=== PATIENT | female | born 1995 | race Caucasian/White ===

== ENCOUNTER → 2020-01-14 16:21 | Outpatient (BNVA) | payer SELFPAY | PROVIDERS: Visit Provider Nurse Practitioner | DX: R35.0 Frequency of micturition (principal) | CPT/HCPCS: 81000 ==

== ENCOUNTER 2021-03-03 05:20 | Day surgery (SDC) | payer MEDICAID, SELFPAY ==
[2021-03-03] VITALS (8 sets, daily range): BP systolic 113–135; BP diastolic 71–101; PULSE 54–88; RESP 16–20; TEMP 36.2–36.7; O2SAT 96–99; BMI 37.9
--- NOTE | 2021-03-03 05:49 | ED_ITS ---
Documented by User: Farooq Denney DO 03/03/21 06:17 HPI - Abdominal Pain General: Chief Complaint: Abdominal Pain Stated Complaint: ABD Pain Time Seen by Provider: 03/03/21 05:43 History of Present Illness: HPI narrative: 25-year-old female, healthy, with epigastric pain on and off for a month. She says it is worse after meals. She has vomited once this morning due to the pain. She has had multiple episodes. She says it seems to be getting worse. She denies fever. No history of belly surgery. No diarrhea. Localizes pain to the epigastrium. MD elicited complaint: abdominal pain Onset (ago): day(s) (30) Pain Consistency: intermittent Location: Epigastric Severity: moderate Quality: cramping and stabbing Radiation: none Migration to: no migration Exacerbating factors: eating Relieving factors: other (Smoking marijuana) Associated Symptoms: Reports vomiting; Denies change in bowel habits, change in stool character, chills, constipation, diarrhea, dysuria, fever(s), hematemesis and melena Review of Systems Const: Denies: fever(s) or chills Card: Denies: chest pain Resp: Denies: dyspnea, productive cough or non-productive cough GI: Reports: vomiting; Denies: hematemesis, diarrhea, constipation, change in bowel habits, change in stool character or melena : Denies: dysuria Neuro: Denies: headache(s) [facility] ED PFSH: Social History Smoking and tobacco status: never smoked Physical Exam Const: COMMON NORMALS: patient oriented x3 GENERAL APPEARANCE: cooperative and ill appearing (in pain) NUTRITIONAL APPEARANCE: overweight HENMT: COMMON NORMALS: normocephalic HEAD & SCALP: normocephalic Chest: COMMONS NORMALS: normal inspection of the chest CHEST: No tenderness Resp: COMMON NORMALS: normal respiratory effort, No use of accessory muscles and clear to auscultation bilaterally AUSCULTATION: clear to auscultation bilaterally Cardio: COMMON NORMALS: regular rate and regular rhythm RATE: regular rate RHYTHM: regular rhythm GI: COMMON NORMALS: Normal to inspection, nondistended, normoactive bowel sounds present PALPATION: Yes Tenderness to palpation present (GI) (epigastric ) Extremity: COMMON NORMALS: capillary refill normal Neuro: COMMON NORMALS: patient oriented x3 Course Vital Signs: Vital signs: Vital Signs Temperature 98.0 F 03/03/21 06:29 Pulse Rate 54 L 03/03/21 17:38 Respiratory Rate 18 03/03/21 06:29 Blood Pressure 113/71 03/03/21 09:30 Pulse Oximetry 98 03/03/21 17:38 MDM - Abdominal Pain MDM Narrative: Medical decision making narrative: 25-year-old female with epigastric pain. White blood cell count is 13.1. Other laboratory is pending. She will be checked out to Dr. Aleman at shift change. Lab Data: Labs: Lab Results 03/03/21 03/03/21 03/03/21 Range/Units 05:44 05:44 05:44 WBC 13.1 H (4.0-10.0) 10^3/ uL RBC 5.46 H (4.1-5.3) 10^6/u L Hgb 15.0 (11.5-15.3) g/dL Hct 46.5 (37.0-47.0) % MCV 85.2 (81-99) fl MCH 27.5 L (28.0-34.0) pg MCHC 32.3 (30.0-36.0) g/dL RDW 13.3 (12.1-15.1) % Plt Count 309 (130-400) 10^3/c mm MPV 11.8 H (7.4-10.4) fL Neut % (Auto) 73.4 % Lymph % (Auto) 19.7 % [place] % (Auto) 5.2 % Eos % (Auto) 1.0 % Baso % (Auto) 0.3 % Neut # (Auto) 9.60 H (1.8-7.7) 10^3/u L Lymph # (Auto) 2.6 (0.8-4.8) 10^3/u L [place] # (Auto) 0.7 (0.2-0.9) 10^3/u L Eos # (Auto) 0.1 (0.0-0.8) 10^3/u L Baso # (Auto) 0.0 (0.0-0.1) 10^3/u L Nucleated RBC % (a uto) 0 % Nucleated RBCs # 0.0 /100WBC Sodium 136 (136-145) mmol/L Potassium 3.9 (3.5-5.1) mmol/L Chloride 102 (98-107) mmol/L Carbon Dioxide 24 (22-29) mmol/L Anion Gap 13.9 (5-19) BUN 11 (6-20) mg/dL Creatinine 0.7 (0.5-0.9) mg/dL GFR Calculation 102.8 (90-130) mL/min Glucose 96 (65-115) mg/dL Calculated Osmolal ity 281 L (285-295) mOsm/k g Lactate 1.0 (0.5-2.2) mmol/L Calcium 9.2 (8.5-10.5) mg/dL Total Bilirubin 0.6 (0.15-1.2) mg/dL AST 62 H (0-32) U/L ALT 61 H (0-33) U/L Alkaline Phosphata se 135 H (35-105) IU/L C-Reactive Protein 6.2 H (0.0-4.9) mg/L Total Protein 7.5 (6.6-8.7) g/dL Albumin 4.5 (3.5-5.2) g/dL Globulin 3.0 (1.3-4.6) g/dL Lipase 34 (13-60) U/L HCG, Qual (Negative) Urine Color (Yellow) Urine Appearance (CLEAR) Urine pH (5-7) Ur Specific Gravit y (1.005-1.030) Urine Protein (Negative) Urine Glucose (UA) (Normal) Urine Ketones (Negative) Urine Blood (Negative) Urine Nitrate (Negative) Urine Bilirubin (Negative) Urine Urobilinogen (Negative) mg/dL Ur Leukocyte Mila ase (Negative) Urine RBC (0-2) /hpf Urine WBC (0-5) /hpf Ur Squamous Epith Cells (0-5) /hpf Amorphous Sediment Urine Bacteria (NONE) /hpf SARS-CoV-2 Ag (Rap id) (Negative) 03/03/21 03/03/21 03/03/21 Range/Units 05:44 05:44 10:23 WBC (4.0-10.0) 10^3/ uL RBC (4.1-5.3) 10^6/u L Hgb (11.5-15.3) g/dL Hct (37.0-47.0) % MCV (81-99) fl MCH (28.0-34.0) pg MCHC (30.0-36.0) g/dL RDW (12.1-15.1) % Plt Count (130-400) 10^3/c mm MPV (7.4-10.4) fL Neut % (Auto) % Lymph % (Auto) % [place] % (Auto) % Eos % (Auto) % Baso % (Auto) % Neut # (Auto) (1.8-7.7) 10^3/u L Lymph # (Auto) (0.8-4.8) 10^3/u L [place] # (Auto) (0.2-0.9) 10^3/u L Eos # (Auto) (0.0-0.8) 10^3/u L Baso # (Auto) (0.0-0.1) 10^3/u L Nucleated RBC % (a uto) % Nucleated RBCs # /100WBC Sodium (136-145) mmol/L Potassium (3.5-5.1) mmol/L Chloride (98-107) mmol/L Carbon Dioxide (22-29) mmol/L Anion Gap (5-19) BUN (6-20) mg/dL Creatinine (0.5-0.9) mg/dL GFR Calculation (90-130) mL/min Glucose (65-115) mg/dL Calculated Osmolal ity (285-295) mOsm/k g Lactate (0.5-2.2) mmol/L Calcium (8.5-10.5) mg/dL Total Bilirubin (0.15-1.2) mg/dL AST (0-32) U/L ALT (0-33) U/L Alkaline Phosphata se (35-105) IU/L C-Reactive Protein (0.0-4.9) mg/L Total Protein (6.6-8.7) g/dL Albumin (3.5-5.2) g/dL Globulin (1.3-4.6) g/dL Lipase (13-60) U/L HCG, Qual Negative (Negative) Urine Color Dark yellow (Yellow) Urine Appearance Hazy A (CLEAR) Urine pH 5 (5-7) Ur Specific Gravit y 1.025 (1.005-1.030) Urine Protein Neg (Negative) Urine Glucose (UA) Norm (Normal) Urine Ketones Negative (Negative) Urine Blood 2+ H (Negative) Urine Nitrate Negative (Negative) Urine Bilirubin 1+ H (Negative) Urine Urobilinogen 1 H (Negative) mg/dL Ur Leukocyte Mila ase 1+ H (Negative) Urine RBC 5-10 H (0-2) /hpf Urine WBC 10-15 H (0-5) /hpf Ur Squamous Epith Cells 15-25 H (0-5) /hpf Amorphous Sediment Not Reportable Urine Bacteria 1+ H (NONE) /hpf SARS-CoV-2 Ag (Rap id) Negative (Negative) Discharge Plan Discharge Patient Disposition: Transfer to ED Clinical Impression: Choledocholithiasis, Leukocytosis Condition: Stable Prescriptions: No Action No Known Home Medications RF: 0 Coding Level of Care Code ED Cytogenetics Laboratory Manager for Chg Fwd Exam Detailed Documented by User: Lydia Aleman MD 03/03/21 18:38 HPI - Abdominal Pain General: Chief Complaint: Abdominal Pain Stated Complaint: ABD Pain Time Seen by Provider: 03/03/21 05:43 [facility] ED PFSH: Social History Smoking and tobacco status: never smoked Course Vital Signs: Vital signs: Vital Signs Temperature 98.0 F 03/03/21 06:29 Pulse Rate 54 L 03/03/21 17:38 Respiratory Rate 18 03/03/21 06:29 Blood Pressure 113/71 03/03/21 09:30 Pulse Oximetry 98 03/03/21 17:38 MDM - Abdominal Pain MDM Narrative: Medical decision making narrative: Patient is noted to have white count of 13.1, similar to prior presentation on 02/23. On exam, patient has mild tenderness to palpation the midepigastric area. CT abdomen pelvis showed dilated CBD at 0.9 cm. Given findings of cholelithiasis this is suggestive of choledocholithiasis. Patient is afebrile today. However, given leukocytosis, finding of choledocholithiasis, although no suspicion for ascending cholangitis currently, patient would be better served being at a facility where ERCP is readily available. Currently waiting to hear back from available hospitals with med/surg beds and ERCP capabilities. Lab Data: Labs: Lab Results 03/03/21 03/03/21 03/03/21 Range/Units 05:44 05:44 05:44 WBC 13.1 H (4.0-10.0) 10^3/ uL RBC 5.46 H (4.1-5.3) 10^6/u L Hgb 15.0 (11.5-15.3) g/dL Hct 46.5 (37.0-47.0) % MCV 85.2 (81-99) fl MCH 27.5 L (28.0-34.0) pg MCHC 32.3 (30.0-36.0) g/dL RDW 13.3 (12.1-15.1) % Plt Count 309 (130-400) 10^3/c mm MPV 11.8 H (7.4-10.4) fL Neut % (Auto) 73.4 % Lymph % (Auto) 19.7 % [place] % (Auto) 5.2 % Eos % (Auto) 1.0 % Baso % (Auto) 0.3 % Neut # (Auto) 9.60 H (1.8-7.7) 10^3/u L Lymph # (Auto) 2.6 (0.8-4.8) 10^3/u L [place] # (Auto) 0.7 (0.2-0.9) 10^3/u L Eos # (Auto) 0.1 (0.0-0.8) 10^3/u L Baso # (Auto) 0.0 (0.0-0.1) 10^3/u L Nucleated RBC % (a uto) 0 % Nucleated RBCs # 0.0 /100WBC Sodium 136 (136-145) mmol/L Potassium 3.9 (3.5-5.1) mmol/L Chloride 102 (98-107) mmol/L Carbon Dioxide 24 (22-29) mmol/L Anion Gap 13.9 (5-19) BUN 11 (6-20) mg/dL Creatinine 0.7 (0.5-0.9) mg/dL GFR Calculation 102.8 (90-130) mL/min Glucose 96 (65-115) mg/dL Calculated Osmolal ity 281 L (285-295) mOsm/k g Lactate 1.0 (0.5-2.2) mmol/L Calcium 9.2 (8.5-10.5) mg/dL Total Bilirubin 0.6 (0.15-1.2) mg/dL AST 62 H (0-32) U/L ALT 61 H (0-33) U/L Alkaline Phosphata se 135 H (35-105) IU/L C-Reactive Protein 6.2 H (0.0-4.9) mg/L Total Protein 7.5 (6.6-8.7) g/dL Albumin 4.5 (3.5-5.2) g/dL Globulin 3.0 (1.3-4.6) g/dL Lipase 34 (13-60) U/L HCG, Qual (Negative) Urine Color (Yellow) Urine Appearance (CLEAR) Urine pH (5-7) Ur Specific Gravit y (1.005-1.030) Urine Protein (Negative) Urine Glucose (UA) (Normal) Urine Ketones (Negative) Urine Blood (Negative) Urine Nitrate (Negative) Urine Bilirubin (Negative) Urine Urobilinogen (Negative) mg/dL Ur Leukocyte Mila ase (Negative) Urine RBC (0-2) /hpf Urine WBC (0-5) /hpf Ur Squamous Epith Cells (0-5) /hpf Amorphous Sediment Urine Bacteria (NONE) /hpf SARS-CoV-2 Ag (Rap id) (Negative) 03/03/21 03/03/21 03/03/21 Range/Units 05:44 05:44 10:23 WBC (4.0-10.0) 10^3/ uL RBC (4.1-5.3) 10^6/u L Hgb (11.5-15.3) g/dL Hct (37.0-47.0) % MCV (81-99) fl MCH (28.0-34.0) pg MCHC (30.0-36.0) g/dL RDW (12.1-15.1) % Plt Count (130-400) 10^3/c mm MPV (7.4-10.4) fL Neut % (Auto) % Lymph % (Auto) % [place] % (Auto) % Eos % (Auto) % Baso % (Auto) % Neut # (Auto) (1.8-7.7) 10^3/u L Lymph # (Auto) (0.8-4.8) 10^3/u L [place] # (Auto) (0.2-0.9) 10^3/u L Eos # (Auto) (0.0-0.8) 10^3/u L Baso # (Auto) (0.0-0.1) 10^3/u L Nucleated RBC % (a uto) % Nucleated RBCs # /100WBC Sodium (136-145) mmol/L Potassium (3.5-5.1) mmol/L Chloride (98-107) mmol/L Carbon Dioxide (22-29) mmol/L Anion Gap (5-19) BUN (6-20) mg/dL Creatinine (0.5-0.9) mg/dL GFR Calculation (90-130) mL/min Glucose (65-115) mg/dL Calculated Osmolal ity (285-295) mOsm/k g Lactate (0.5-2.2) mmol/L Calcium (8.5-10.5) mg/dL Total Bilirubin (0.15-1.2) mg/dL AST (0-32) U/L ALT (0-33) U/L Alkaline Phosphata se (35-105) IU/L C-Reactive Protein (0.0-4.9) mg/L Total Protein (6.6-8.7) g/dL Albumin (3.5-5.2) g/dL Globulin (1.3-4.6) g/dL Lipase (13-60) U/L HCG, Qual Negative (Negative) Urine Color Dark yellow (Yellow) Urine Appearance Hazy A (CLEAR) Urine pH 5 (5-7) Ur Specific Gravit y 1.025 (1.005-1.030) Urine Protein Neg (Negative) Urine Glucose (UA) Norm (Normal) Urine Ketones Negative (Negative) Urine Blood 2+ H (Negative) Urine Nitrate Negative (Negative) Urine Bilirubin 1+ H (Negative) Urine Urobilinogen 1 H (Negative) mg/dL Ur Leukocyte Mila ase 1+ H (Negative) Urine RBC 5-10 H (0-2) /hpf Urine WBC 10-15 H (0-5) /hpf Ur Squamous Epith Cells 15-25 H (0-5) /hpf Amorphous Sediment Not Reportable Urine Bacteria 1+ H (NONE) /hpf SARS-CoV-2 Ag (Rap id) Negative (Negative) Imaging Data ^: Other Imaging: Radiologist's impression: [employer] [id number] Scan ReportSigned Patient: Elisabet Lozano #: [id number]: 1995Acct#:[id number]/Sex: 25 / FADM Date: 03/03/21Loc: ERRoom/Bed:Attending Dr: Ordering Provider/Ordering MD: Farooq Denney DO Date of Service: 03/03/21 Procedure(s): CT abdomen pelvis w con* [id number] Accession Number(s): [id number] Report Number: [id number] PROCEDURE INFORMATION: Exam: CT Abdomen And Pelvis With Contrast Exam date and time: 03/03/2021 6:04 AM Age: 25 years old Clinical indication: Abdominal pain; Epigastric; Additional info: Epigastric pain TECHNIQUE: Imaging protocol: Computed tomography of the abdomen and pelvis with contrast. Radiation optimization: All CT scans at this facility use at least one of these dose optimization techniques: automated exposure control; mA and/or kV adjustment per patient size (includes targeted exams where dose is matched to clinical indication); or iterative reconstruction. Contrast material: OMNI 300; Contrast volume: 95 ml; Contrast route: INTRAVENOUS (IV); COMPARISON: [place] [facility] [place] > 14 weeks 10/19/2018 1:45 PM RADIATION DOSE METRICS: Total DLP (mGy-cm): 1822.12 FINDINGS: Liver: Normal. No mass. Gallbladder and bile ducts: There is dilatation of the CBD measuring up to 0.9 cm in diameter, dilatation of the common hepatic duct measuring up to 1.5 cm in diameter, and mild intrahepatic biliary ductal dilatation, suggestive of choledocholithiasis. Mildly distended gallbladder with a single stone measuring 0.5 cm. Pancreas: Normal. No ductal dilation. Spleen: Normal. No splenomegaly. Adrenal glands: Normal. No mass. Kidneys and ureters: There is bilateral nonobstructive kidney stones, measuring between 0.2 cm and 0.3 cm. No hydronephrosis. Symmetric enhancement of the kidneys without evidence of mass lesion. Stomach and bowel: Unremarkable. No obstruction. No mucosal thickening. Appendix: No evidence of appendicitis. Intraperitoneal space: Unremarkable. No free air. No significant fluid collection. Vasculature: Unremarkable. No abdominal aortic aneurysm. Lymph nodes: Unremarkable. No enlarged lymph nodes. Urinary bladder: Unremarkable as visualized. Reproductive: Unremarkable as visualized. Bones/joints: Unremarkable. No acute fracture. Soft tissues: A small fat containing umbilical hernia is present. CT/CT abdomen pelvis w con* [id number] IMPRESSION: Imaging findings concerning for choledocholithiasis. Further evaluation with abdomen ultrasound and/or abdomen MRI/MRCP is recommended. Radiation Dose CTDIVOL = (mGy): DLP = 1822.12 (mGy-cm) Dictated By:Latasha Sherwood By:Latasha Sherwood Date/Time:03/03/21 0703DD/ [address] [address]Shxauqciva ReportSigned Patient: Elisabet Lozano #: [id number]: 1995Acct#:[id number]/Sex: 25 / FADM Date: 03/03/21[facility]Attending Dr: Ordering Provider/Ordering MD: Lydia Aleman MD Date of Service: 03/03/21 Procedure(s): US gall bladder [id number] Accession Number(s): [id number] Report Number: [id number] PROCEDURE INFORMATION: Exam: US Abdomen, Limited; Right Upper Quadrant Exam date and time: 03/03/2021 9:29 AM Age: 25 years old Clinical indication: Abdominal pain; Additional info: Evaluate for pathologies TECHNIQUE: Imaging protocol: US abdomen. Real time ultrasound with image documentation. Limited exam focused on the right upper quadrant. COMPARISON: CT abdomen pelvis w con* [id number] 03/03/2021 6:34 AM FINDINGS: Liver: Liver is diffusely increased in echogenicity, most commonly seen in hepatic steatosis, though other forms of parenchymal liver disease could have a similar appearance. This limits evaluation for subtle isoechoic masses but no masses are seen. Patent main portal vein with normal direction of flow. Gallbladder: Multiple gallstones noted. There is no gallbladder wall thickening. Common bile duct: No stones. Mildly dilated CBD measuring between 0.7 cm and 1.0 cm. Pancreas: Visualized pancreas is unremarkable. Right kidney: Pinning of the right renal cortex noted. No mass. No hydronephrosis. US/US gall bladder [id number] IMPRESSION: 1. Mildly dilated CBD. No stone identified. Further evaluation with abdomen MRI/MRCP should be considered in the adequate clinical setting. 2. Cholelithiasis without evidence of cholecystitis. 3. Hyperechoic liver, which can be seen with fatty infiltration or hepatocellular disease. No discrete mass lesion identified. 4. Thinning of the right renal cortex. Dictated By:Latasha Sherwood By:Latasha Sherwood Date/Time:03/03/21 1118DD/ 1117 Discharge Plan Discharge Patient Disposition: Transfer to ED Clinical Impression: Choledocholithiasis, Leukocytosis Condition: Stable Prescriptions: No Action No Known Home Medications RF: 0 Coding Level of Care Code ED Cytogenetics Laboratory Manager for Chg Fwd Exam Detailed
[2021-03-03 05:57] LABS: Basophils % 0.3 %; Eosinophils # 0.1 10^3/uL (0.0-0.8); Hematocrit 46.5 % (37.0-47.0); Lymphocytes # 2.6 10^3/uL (0.8-4.8); Lymphocytes % 19.7 %; Mean Corpuscular HGB Conc 32.3 g/dL (30.0-36.0); Mean Corpuscular Hemoglobin 27.5 pg (28.0-34.0); Mean Corpuscular Volume 85.2 fl (81-99); Mean Platelet Volume 11.8 fL (7.4-10.4); Monocytes # 0.7 10^3/uL (0.2-0.9); Monocytes % 5.2 %; Neutrophils % 73.4 %; Nucleated Red Blood Cells % 0 %; Platelet Count 309 10^3/cmm (130-400); Red Blood Count 5.46 10^6/uL (4.1-5.3); Red Cell Distribution Width 13.3 % (12.1-15.1); White Blood Count 13.1 10^3/uL (4.0-10.0)
--- NOTE | 2021-03-03 06:04 | CTR_ITS ---
PROCEDURE INFORMATION: Exam: CT Abdomen And Pelvis With Contrast Exam date and time: 03/03/2021 6:04 AM Age: 25 years old Clinical indication: Abdominal pain; Epigastric; Additional info: Epigastric pain TECHNIQUE: Imaging protocol: Computed tomography of the abdomen and pelvis with contrast. Radiation optimization: All CT scans at this facility use at least one of these dose optimization techniques: automated exposure control; mA and/or kV adjustment per patient size (includes targeted exams where dose is matched to clinical indication); or iterative reconstruction. Contrast material: OMNI 300; Contrast volume: 95 ml; Contrast route: INTRAVENOUS (IV); COMPARISON: [place] [facility] [place] > 14 weeks 10/19/2018 1:45 PM RADIATION DOSE METRICS: Total DLP (mGy-cm): 1822.12 FINDINGS: Liver: Normal. No mass. Gallbladder and bile ducts: There is dilatation of the CBD measuring up to 0.9 cm in diameter, dilatation of the common hepatic duct measuring up to 1.5 cm in diameter, and mild intrahepatic biliary ductal dilatation, suggestive of choledocholithiasis. Mildly distended gallbladder with a single stone measuring 0.5 cm. Pancreas: Normal. No ductal dilation. Spleen: Normal. No splenomegaly. Adrenal glands: Normal. No mass. Kidneys and ureters: There is bilateral nonobstructive kidney stones, measuring between 0.2 cm and 0.3 cm. No hydronephrosis. Symmetric enhancement of the kidneys without evidence of mass lesion. Stomach and bowel: Unremarkable. No obstruction. No mucosal thickening. Appendix: No evidence of appendicitis. Intraperitoneal space: Unremarkable. No free air. No significant fluid collection. Vasculature: Unremarkable. No abdominal aortic aneurysm. Lymph nodes: Unremarkable. No enlarged lymph nodes. Urinary bladder: Unremarkable as visualized. Reproductive: Unremarkable as visualized. Bones/joints: Unremarkable. No acute fracture. Soft tissues: A small fat containing umbilical hernia is present. CT/CT abdomen pelvis w con* [id number] IMPRESSION: Imaging findings concerning for choledocholithiasis. Further evaluation with abdomen ultrasound and/or abdomen MRI/MRCP is recommended. Radiation Dose CTDIVOL = (mGy): DLP = 1822.12 (mGy-cm)
[2021-03-03 06:13] LABS: HCG, Serum Qual Negative (Negative)
[2021-03-03 06:18] LABS: Alanine Aminotransferase 61 U/L (0-33); Albumin Level 4.5 g/dL (3.5-5.2); Alkaline Phosphatase 135 IU/L (35-105); Anion Gap 13.9 (5-19); Aspartate Amino Transferase 62 U/L (0-32); Blood Urea Nitrogen 11 mg/dL (6-20); C Reactive Protein 6.2 mg/L (0.0-4.9); Calcium 9.2 mg/dL (8.5-10.5); Carbon Dioxide 24 mmol/L (22-29); Chloride 102 mmol/L (98-107); Glomerular Filtration Rate 102.8 mL/min (90-130); Glucose 96 mg/dL (65-115); Lipase 34 U/L (13-60); Osmolality Calculated 281 mOsm/kg (285-295); Potassium 3.9 mmol/L (3.5-5.1); Sodium 136 mmol/L (136-145); Total Bilirubin 0.6 mg/dL (0.15-1.2); Total Protein 7.5 g/dL (6.6-8.7)
[2021-03-03] MEDS: ondansetron 2 mg/ML SDV 2 mL 4 MG IVP ×2 (06:24→20:18)
[2021-03-03] MEDS: morphine 4 mg/mL SDV 1 mL IVP ×2 (06:25→20:18)
[2021-03-03] MEDS: sodium chloride 0.9% 1,000 ML 999 ML IV (06:26)
[2021-03-03] MEDS: lidocaine 2% viscous 15 ML, aluminum-mag hydrox-simethicon 30 ML, sucralfate oral liq 1 GM PO (06:26)
[2021-03-03 06:36] LABS: Bilirubin Urine 1+ (Negative); Blood Urine 2+ (Negative); Glucose Urine UA Norm (Normal); Ketones Urine Negative (Negative); Nitrate Urine Negative (Negative); Protein Urine Neg (Negative); Specific Gravity, Urine 1.025 (1.005-1.030); Urine Appearance Hazy (CLEAR); Urine Color Dark Yellow (Yellow); pH Urine 5 (5-7)
[2021-03-03] MEDS: iohexol 300 mg/mL 100 mL Btl IV (06:36)
[2021-03-03 06:37] LABS: Add Urine Culture? No; Add Urine Microscopic? YES; Bacteria Urine 1+ /hpf; Leukocyte Esterase Urine 1+ (Negative); Squamous Epithelial Cell Urine 15-25 /hpf (0-5); Urobilinogen Urine 1 mg/dL (Negative)
--- NOTE | 2021-03-03 06:45 | PC.NURSE ---
report to Kaur GILLESPIE
--- NOTE | 2021-03-03 09:29 | USR_ITS ---
PROCEDURE INFORMATION: Exam: US Abdomen, Limited; Right Upper Quadrant Exam date and time: 03/03/2021 9:29 AM Age: 25 years old Clinical indication: Abdominal pain; Additional info: Evaluate for pathologies TECHNIQUE: Imaging protocol: US abdomen. Real time ultrasound with image documentation. Limited exam focused on the right upper quadrant. COMPARISON: CT abdomen pelvis w con* [id number] 03/03/2021 6:34 AM FINDINGS: Liver: Liver is diffusely increased in echogenicity, most commonly seen in hepatic steatosis, though other forms of parenchymal liver disease could have a similar appearance. This limits evaluation for subtle isoechoic masses but no masses are seen. Patent main portal vein with normal direction of flow. Gallbladder: Multiple gallstones noted. There is no gallbladder wall thickening. Common bile duct: No stones. Mildly dilated CBD measuring between 0.7 cm and 1.0 cm. Pancreas: Visualized pancreas is unremarkable. Right kidney: Pinning of the right renal cortex noted. No mass. No hydronephrosis. US/US gall bladder [id number] IMPRESSION: 1. Mildly dilated CBD. No stone identified. Further evaluation with abdomen MRI/MRCP should be considered in the adequate clinical setting. 2. Cholelithiasis without evidence of cholecystitis. 3. Hyperechoic liver, which can be seen with fatty infiltration or hepatocellular disease. No discrete mass lesion identified. 4. Thinning of the right renal cortex.
[2021-03-03 11:16] LABS: SARS Covid-2 Antigen Negative (Negative)
[2021-03-03] MEDS: fentaNYL 50 mcg/mL INJ 2mL 25 MCG IVP (12:07)
[2021-03-03] MEDS: cefTRIAXone 1,000 MG in sodium chloride 0.9% (plus) 50 ML 100 MG IV (15:00)
--- NOTE | 2021-03-03 17:38 | PC.NURSE ---
VITAL SIGNS FROM 1000 TO 1715 PRINTED AND PLACED IN PAPER CHART TO BE SCANNED.
[2021-03-03] MEDS: sodium chloride 0.9% 1,000 ML 125 ML IV (21:38)
[2021-03-04] VITALS (14 sets, daily range): BP systolic 101–143; BP diastolic 66–105; PULSE 64–77; RESP 15–20; TEMP 36.2–36.8; O2SAT 93–100
--- NOTE | 2021-03-04 | SCC_ITS ---
Procedure Done: Laparoscopic cholecystectomy with intraoperative cholangiogram 35.8 seconds of fluoroscopic guidance, for a cumulative dose of 10.08 mGy, was provided to Dr. Prabhakar by the radiology department. C-arm images of the abdomen were saved for the patient's permanent record. [facility]
--- NOTE | 2021-03-04 | XR_ITS ---
WS: [id number] Operating room cholangiogram, 03/04/2021 Clinical Data: OR PICS Comparison: None. Findings: The contrast material was injected into the cystic duct. The common bile duct and proximal intrahepat ic radicles fill normally. No intraluminal filling defects are seen. The contrast flows normally into the second part of the duodenum. XR/XR cholangio operative [id number] Impression: Negative operating room cholangiogram.
[2021-03-04] MEDS: diphenhydrAMINE 50 mg/mL SDV 1mL 25 MG IVP (01:41)
[2021-03-04 04:37] LABS: Basophils % 0.4 %; Eosinophils # 0.1 10^3/uL (0.0-0.8); Eosinophils % 1.2 %; Hematocrit 41.5 % (37.0-47.0); Hemoglobin 13.2 g/dL (11.5-15.3); Lymphocytes # 2.5 10^3/uL (0.8-4.8); Lymphocytes % 37.5 %; Mean Corpuscular HGB Conc 31.8 g/dL (30.0-36.0); Mean Corpuscular Hemoglobin 27.4 pg (28.0-34.0); Mean Corpuscular Volume 86.1 fl (81-99); Mean Platelet Volume 11.8 fL (7.4-10.4); Monocytes # 0.5 10^3/uL (0.2-0.9); Neutrophils % 53.8 %; Nucleated Red Blood Cells % 0 %; Platelet Count 246 10^3/cmm (130-400); Red Blood Count 4.82 10^6/uL (4.1-5.3); Red Cell Distribution Width 13.3 % (12.1-15.1); White Blood Count 6.7 10^3/uL (4.0-10.0)
[2021-03-04 04:54] LABS: Alanine Aminotransferase 70 U/L (0-33); Alkaline Phosphatase 120 IU/L (35-105); Anion Gap 13.8 (5-19); Aspartate Amino Transferase 47 U/L (0-32); Blood Urea Nitrogen 8 mg/dL (6-20); Calcium 8.8 mg/dL (8.5-10.5); Carbon Dioxide 27 mmol/L (22-29); Chloride 104 mmol/L (98-107); Globulin 2.5 g/dL (1.3-4.6); Glomerular Filtration Rate 122.8 mL/min (90-130); Glucose 80 mg/dL (65-115); Lactate (Lactic Acid level) 0.8 mmol/L (0.5-2.2); Osmolality Calculated 289 mOsm/kg (285-295); Potassium 3.8 mmol/L (3.5-5.1); Sodium 141 mmol/L (136-145); Total Bilirubin 0.6 mg/dL (0.15-1.2); Total Protein 6.5 g/dL (6.6-8.7)
--- NOTE | 2021-03-04 06:44 | MRR_ITS ---
PROCEDURE INFORMATION: Exam: MR Abdomen Without Contrast Exam date and time: 03/04/2021 6:44 AM Age: 25 years old Clinical indication: Abdominal pain; Additional info: Ruq pain, borderline dilated bile duct TECHNIQUE: Imaging protocol: MR of the abdomen without contrast. COMPARISON: CT abdomen pelvis w con* [id number] 03/03/2021 6:34 AM FINDINGS: Liver: No mass. Gallbladder and bile ducts: Cholelithiasis. No gallbladder wall thickening or pericholecystic fluid is seen. The common duct is dilated to a diameter of 11 mm. No intraductal stone or stricture is seen. Pancreas: Unremarkable. No ductal dilation. Spleen: Unremarkable. No splenomegaly. Adrenal glands: Unremarkable. No mass. Kidneys and ureters: Unremarkable. No solid mass. No hydronephrosis. Stomach and bowel: Visualized stomach and intestines are unremarkable. Intraperitoneal space: No free fluid. Arteries: No abdominal aortic aneurysm. Bones/joints: Unremarkable. Soft tissues: Unremarkable. MR/MR MRCP [id number] IMPRESSION: 1. Cholelithiasis. 2. The common duct is dilated to a diameter of 11 mm. No biliary stone or stricture is seen.
[2021-03-04] MEDS: morphine 4 mg/mL SDV 1 mL IVP (07:29)
[2021-03-04] MEDS: ondansetron 2 mg/ML SDV 2 mL 4 MG IVP (07:29)
--- NOTE | 2021-03-04 11:47 | PM.HP ---
Providers/Chief Complaint Chief Complaint: ABD Pain History of Present Illness Elisabet Lozano is a 25 year old female who presented to the ER with 1 day history of acute onset of midepigastric/right upper quadrant pain that radiated to the back associated with fatty meal. Patient is recently in November and has had multiple episodes similar to this however this is the most severe. She notes associated nausea but no vomiting. The pain is described as crampy and sharp in nature with radiation to the back and worsened by food intake and alleviated with time. However, this time the pain has not subsided. The patient on CT scan and ultrasound was found to have a dilated common bile duct and cholelithiasis. The initial thought was that she had choledocholithiasis the plan was to transfer out for ERCP. However, patient was unable to be transferred in a timely fashion and has been here for over 24 hours. An MRCP was obtained this morning to rule out choledocholithiasis and it did. Patient with continued pain and now cleared for choledocholithiasis. Review of Systems General: Reports: 10 or more systems reviewed and unremarkable except in HPI and below Medications/Allergies Home Medications Medication Instructions Recorded Confirmed Last Taken Type No Known Home Medications 03/03/21 03/03/21 Unknown History Allergies Allergy/AdvReac Type Severity Reaction Status Date / Time No Known Allergies Allergy Verified 01/11/21 13:37 PFSH Acute PFSH: Social History Smoking and tobacco status: never smoked Vitals/I&O/Wt Last Vital Signs Temp 98.0 F 03/03/21 06:29 Pulse 64 03/04/21 07:45 Resp 16 03/04/21 07:29 BP 101/68 03/04/21 07:45 Pulse Ox 97 03/04/21 07:45 03/03/21 03/04/21 03/04/21 22:59 06:59 14:59 Intake Total 50 / 1050 Balance 50 / 1050 Weight last 48 hrs Weight 214 lb Physical Exam Const: COMMON NORMALS: no acute distress and patient oriented x3 GENERAL APPEARANCE: cooperative HENMT: COMMON NORMALS: normocephalic Eye: COMMON NORMALS: Equal, round and reactive pupils present Neck/C-Spine: COMMON NORMALS: full ROM Chest: COMMONS NORMALS: normal inspection of the chest Resp: COMMON NORMALS: normal respiratory effort Cardio: COMMON NORMALS: regular rate and regular rhythm GI: COMMON NORMALS: Normal to inspection, nondistended, normoactive bowel sounds present PALPATION: Yes Tenderness to palpation present (GI) Details: RUQ Extremity: COMMON NORMALS: normal to inspection Neuro: COMMON NORMALS: patient oriented x3 Psych: COMMON NORMALS: mental status grossly normal Skin: COMMON NORMALS: no rashes or lesions noted Data : 03/04/21 04:30 03/04/21 04:30 MRI: My impression: I have personally reviewed the images. Radiologist's impression: 1. Cholelithiasis. 2. The common duct is dilated to a diameter of 11 mm. No biliary stone or stricture is seen. CT Abd/Pel: My impression: I have personally reviewed the images Radiologist's impression: Imaging findings concerning for choledocholithiasis. Further evaluation with abdomen ultrasound and/or abdomen MRI/MRCP is recommended US: Radiologist's impression: 1. Mildly dilated CBD. No stone identified. Further evaluation with abdomen MRI/MRCP should be considered in the adequate clinical setting. 2. Cholelithiasis without evidence of cholecystitis. 3. Hyperechoic liver, which can be seen with fatty infiltration or hepatocellular disease. No discrete mass lesion identified. 4. Thinning of the right renal cortex. A&P Assessment and plan (1) Cholecystitis with cholelithiasis: 21-year-old female with acute on chronic cholecystitis with concern for possible choledocholithiasis however MRCP was negative. We will still do IOC at time of surgery to rule out choledocholithiasis. Plan is for lap olga with IOC this morning. Patient should be able to go home from the PACU however may require overnight observation. Status: Acute Qualifiers: Cholelithiasis location: gallbladder Cholecystitis acuity: acute and chronic Biliary obstruction: without biliary obstruction Qualified Code(s): K80.12 - Calculus of gallbladder with acute and chronic cholecystitis without obstruction Attestations Medical Necessity Statement*: Elisabet Andrade Lozano's hospital stay will be less than 2 midnights for acute cholecystitis. Coding Level of Care Code Acute Graphics Edit Technician for [facility] Diagnoses Cholecystitis with cholelithiasis K80.12 Cholelithiasis location: gallbladder Cholecystitis acuity: acute and chronic Biliary obstruction: without biliary obstruction
--- NOTE | 2021-03-04 11:54 | P.ANESASSM_ITS ---
Pre-Anesthetic Assessment Pre-Anesthetic Assessment: Height/Weight: Height 1.6 m Weight 97.069 kg Temp Pulse Resp BP Pulse Ox 98.0 F 64 16 101/68 97 03/03/21 06:29 03/04/21 07:45 03/04/21 07:29 03/04/21 07:45 03/04/21 07:45 Preop Diagnosis: Cholelithiasis Proposed Procedure: Operation Date: 03/04/21 12:00 Proposed Procedures p Laparoscopic Cholecystectomy(Not Applicable) - Nik Prabhakar DO Familial anesthetic complications: None Was Beta Pia taken within 24 hours: N/A Was Clonidine taken within 24 hours: N/A Last intake: > 8 hrs Social: Social History: No alcohol and No tobacco Exam: Pre-Anes Outpt Exam: alert, oriented x 3, clear to auscultation bilaterally and regular rate & rhythm Airway: Cervical ROM: WNL MP: 2 Dentition: Chipped (back molar) Metabolic: Metabolic: Morbid obesity Anesthetic Plan: ASA status: 2 Anesthesia: General Risk of > 500 ml blood loss (7ml/kg in children): No Meds/Allergies Current Medications: Current Medications Generic Name Dose Route Start Last Admin Trade Name Freq PRN Reason Stop Dose Admin Sodium Chloride 1,000 mls @ 125 m ls/hr 03/03/21 20:30 03/03/21 21:38 Sodium Chloride 0.9% IV 125 mls/hr .Q8H EDIN Administration PFSH Anesthesia PFSH: Social History Smoking and tobacco status: never smoked Data Anesthesia CBC & Chem 7: 03/04/21 04:30 03/04/21 04:30 Other Labs: Laboratory Results - last 48 hr 03/03/21 03/03/21 03/03/21 05:44 05:44 05:44 WBC 13.1 H RBC 5.46 H Hgb 15.0 Hct 46.5 MCV 85.2 MCH 27.5 L MCHC 32.3 RDW 13.3 Plt Count 309 MPV 11.8 H Neut % (Auto) 73.4 Lymph % (Auto) 19.7 [place] % (Auto) 5.2 Eos % (Auto) 1.0 Baso % (Auto) 0.3 Neut # (Auto) 9.60 H Lymph # (Auto) 2.6 [place] # (Auto) 0.7 Eos # (Auto) 0.1 Baso # (Auto) 0.0 Nucleated RBC % (auto) 0 Nucleated RBCs # 0.0 Sodium 136 Potassium 3.9 Chloride 102 Carbon Dioxide 24 Anion Gap 13.9 BUN 11 Creatinine 0.7 GFR Calculation 102.8 Glucose 96 Calculated Osmolality 281 L Lactate 1.0 Calcium 9.2 Total Bilirubin 0.6 AST 62 H ALT 61 H Alkaline Phosphatase 135 H C-Reactive Protein 6.2 H Total Protein 7.5 Albumin 4.5 Globulin 3.0 Lipase 34 HCG, Qual Urine Color Urine Appearance Urine pH Ur Specific [place] Urine Protein Urine Glucose (UA) Urine Ketones Urine Blood Urine Nitrate Urine Bilirubin Urine Urobilinogen Ur Leukocyte Esterase Urine RBC Urine WBC Ur Squamous Epith Cells Amorphous Sediment Urine Bacteria SARS-CoV-2 Ag (Rapid) 03/03/21 03/03/21 03/03/21 05:44 05:44 10:23 WBC RBC Hgb Hct MCV MCH MCHC RDW Plt Count MPV Neut % (Auto) Lymph % (Auto) [place] % (Auto) Eos % (Auto) Baso % (Auto) Neut # (Auto) Lymph # (Auto) [place] # (Auto) Eos # (Auto) Baso # (Auto) Nucleated RBC % (auto) Nucleated RBCs # Sodium Potassium Chloride Carbon Dioxide Anion Gap BUN Creatinine GFR Calculation Glucose Calculated Osmolality Lactate Calcium Total Bilirubin AST ALT Alkaline Phosphatase C-Reactive Protein Total Protein Albumin Globulin Lipase HCG, Qual Negative Urine Color Dark yellow Urine Appearance Hazy A Urine pH 5 Ur Specific [place] 1.025 Urine Protein Neg Urine Glucose (UA) Norm Urine Ketones Negative Urine Blood 2+ H Urine Nitrate Negative Urine Bilirubin 1+ H Urine Urobilinogen 1 H Ur Leukocyte Esterase 1+ H Urine RBC 5-10 H Urine WBC 10-15 H Ur Squamous Epith Cells 15-25 H Amorphous Sediment Not Reportable Urine Bacteria 1+ H SARS-CoV-2 Ag (Rapid) Negative 03/04/21 03/04/21 03/04/21 04:30 04:30 04:30 WBC 6.7 RBC 4.82 Hgb 13.2 Hct 41.5 MCV 86.1 MCH 27.4 L MCHC 31.8 RDW 13.3 Plt Count 246 MPV 11.8 H Neut % (Auto) 53.8 Lymph % (Auto) 37.5 [place] % (Auto) 7.0 Eos % (Auto) 1.2 Baso % (Auto) 0.4 Neut # (Auto) 3.60 Lymph # (Auto) 2.5 [place] # (Auto) 0.5 Eos # (Auto) 0.1 Baso # (Auto) 0.0 Nucleated RBC % (auto) 0 Nucleated RBCs # 0.0 Sodium 141 Potassium 3.8 Chloride 104 Carbon Dioxide 27 Anion Gap 13.8 BUN 8 Creatinine 0.6 GFR Calculation 122.8 Glucose 80 Calculated Osmolality 289 Lactate 0.8 Calcium 8.8 Total Bilirubin 0.6 AST 47 H ALT 70 H Alkaline Phosphatase 120 H C-Reactive Protein Total Protein 6.5 L Albumin 4.0 Globulin 2.5 Lipase HCG, Qual Urine Color Urine Appearance Urine pH Ur Specific [place] Urine Protein Urine Glucose (UA) Urine Ketones Urine Blood Urine Nitrate Urine Bilirubin Urine Urobilinogen Ur Leukocyte Esterase Urine RBC Urine WBC Ur Squamous Epith Cells Amorphous Sediment Urine Bacteria SARS-CoV-2 Ag (Rapid) Cardiac Studies: No Data to Display
--- NOTE | 2021-03-04 13:51 | PM.OP2 ---
Brief Operative Note: Date of procedure: 03/04/21 Pre-op diagnosis: Acute cholecystitis with cholelithiasis Post-op diagnosis: same Procedure Done: Laparoscopic cholecystectomy with intraoperative cholangiogram Surgeon: Nik Prabhakar Estimated blood loss (mL): 5 Complications: None Post-op Plan: PACU, p.o. challenge, discharged home Condition: stable Disposition: PACU Coding Level of Care Code Acute Software Configuration Specialist for [facility]
--- NOTE | 2021-03-04 13:53 | PM.OP ---
Operative Report Date of procedure: March 04, 2021 Pre-op Diagnosis: Cholecystitis with cholelithiasis Post-op diagnosis: same Procedure Done: Laparoscopic cholecystectomy with intraoperative cholangiogram Specimens removed/disposition: Gallbladder and contents Pathology: Gallbladder and contents Surgeon: Nik Prabhakar Anesthesia: General Estimated blood loss (mL): 25 IV fluids: See anesthesia record Urine output: See anesthesia record Complications: None Findings: Acute cholecystitis; choledocholithiasis but was able to clear with rapid flush of saline and then had rapid filling of the duodenum on intraoperative cholangiogram Condition: stable Disposition: PACU Brief History: 25-year-old female with abdominal pain and acute cholecystitis. Procedure: Inform consent was obtained patient was then brought back from the preoperative holding area to the OR and placed supine on the operating table. General endotracheal anesthesia was induced. The patient was prepped and draped in the usual sterile fashion. A timeout was performed prior to start procedure. After administration of local anesthesia and infraumbilical vertical incision was made sharply. The base of the umbilicus was grasped and retracted superiorly. The fascia was incised using cautery. An 0 Vicryl in a [id number] fashion was placed through the fascia. I was unable to open the posterior fascia and peritoneum bluntly and safely, so a varus needle insufflation of the abdomen. A small incision was made in the left upper quadrant and a varies needle was introduced through the abdominal wall into the peritoneal cavity. Correct placement of the needle was confirmed with a drop test. Varus insufflation was initiated and 3 L of CO2 was insufflated into the abdomen. I was then able to safely and bluntly enter the peritoneum at the infraumbilical incision. A Courtney trocar was placed and secured using the previously placed 0 Vicryl. The insufflation was switched this port and the 10 mm 30 degree camera was inserted. There were no injuries noted at both sites. The gallbladder was inspected appeared to be moderately inflamed. The gallbladder was grasped retracted up over the liver towards the right shoulder. The infundibulum was grasped and retracted laterally. Using hook electrocautery the peritoneum was incised on either aspect of the gallbladder. The distal gallbladder was dissected using commendation of cautery and blunt dissection to reveal the cystic duct and cystic artery. A critical view was obtained. The cystic duct was incised and the Arrow cholangiogram catheter system was used to perform the Glander Angelito. The catheter was placed through the cystic duct and the balloon insufflated with easy infiltration of saline into the duct. Cholangiogram was performed and there was rapid filling of the common bile duct common hepatic duct and the intrapelvic ducts with some dilation of the the ductal system noted. I did appear to be several small stones at the confluence of the common bile duct and the duodenum with no filling of the duodenum initially. The catheter was flushed with 20 cc of saline and declined to be performed again with rapid filling of the duodenum and no filling defects noted. The cholangiogram catheter was removed. 3 clips were placed proximally on the cystic duct with one distally. 2 clips were placed on the cystic artery and one distally. Both the cystic duct and cystic artery were transected using scissors. The gallbladder was then removed using hook electrocautery from the gallbladder fossa. No bleeding was encountered. The gallbladder was placed in Endo Catch bag. The gallbladder fossa was once again inspected with no evidence of bleeding and good clip placement with no leak noted. The ports were removed under visualization after desufflation of the abdomen. The Courtney was removed and the gallbladder in its bag was removed and sent off for specimen. There were small stones noted within the gallbladder. The infraumbilical incision was closed with the previously placed 0 Vicryl at the fascial level. The all the incisions were closed with 4-0 Monocryl and Dermabond. Patient was awakened from general anesthesia taken the PACU for recovery. All counts were correct at the end the procedure.
[2021-03-04] MEDS: HYDROmorphone 1 mg/mL INJ 1 mL 0.5 MG IVP ×2 (14:05→14:14)
--- NOTE | 2021-03-04 14:19 | PM.DCS ---
Discharge Providers Date of Discharge: March 04, 2021 Attending Provider at Discharge: Nik Prabhakar DO Diagnoses at Discharge Discharge Diagnosis (1) Cholecystitis with cholelithiasis: Status: Acute Qualifiers: Cholelithiasis location: gallbladder Cholecystitis acuity: acute and chronic Biliary obstruction: without biliary obstruction Qualified Code(s): K80.12 - Calculus of gallbladder with acute and chronic cholecystitis without obstruction Reason for Visit Reason for Visit: ABD Pain Hospital Course Hospital Course Patient was held in the ER for greater than 24hours for possible transfer however MRCP revealed no evidence of choledocholithiasis and therefore patient was taken to the OR. I still had some concern for and so I performed an intraoperative cholangiogram during her laparoscopic cholecystectomy which did identify several small stones within the common bile duct. These were flushed out with rapid flushing of saline. Patient tolerated the procedure well and was admitted to the PACU. There she received a diet and was able to tolerate that without pain and her pain was well controlled with oral pain medications and she was discharged home from the PACU. Physical Exam Narrative: EXAM NARRATIVE: General: Awake and alert and orient x3 with no acute distress Abdomen: Soft, appropriately tender; incision clean, dry, and intact with no evidence of infection Discharge Data Data Completed and Pending: Completed Studies During Hospitalization Category Date Time Status CT abdomen pelvis w con* [id number] Urge nt Cat Scan 03/03/21 06:04 Completed MR MRCP [id number] Urg ent MRI 03/04/21 06:44 Completed US gall bladder 7 [id number] Urgent Ultrasound 03/03/21 09:29 Completed Pending at discharge Category Date Time Status C-arm Fluoroscopy [id number] Routine Exams 03/04/21 11:51 Taken ES surgery / GI i mages Routine Exams 03/04/21 11:51 Ordered Complete Blood Co unt w/Auto AM LABS Lab 03/05/21 04:00 Ordered Comprehensive Met abolic Panel AM LA BS Lab 03/05/21 04:00 Ordered Pathology: Surgic al [PTH] Routine Pth 03/04/21 14:01 Ordered Labs from last 24 hours 03/04/21 03/04/21 03/04/21 04:30 04:30 04:30 WBC 6.7 RBC 4.82 Hgb 13.2 Hct 41.5 MCV 86.1 MCH 27.4 L MCHC 31.8 RDW 13.3 Plt Count 246 MPV 11.8 H Neut % (Auto) 53.8 Lymph % (Auto) 37.5 [place] % (Auto) 7.0 Eos % (Auto) 1.2 Baso % (Auto) 0.4 Neut # (Auto) 3.60 Lymph # (Auto) 2.5 [place] # (Auto) 0.5 Eos # (Auto) 0.1 Baso # (Auto) 0.0 Nucleated RBC % (a uto) 0 Nucleated RBCs # 0.0 Sodium 141 Potassium 3.8 Chloride 104 Carbon Dioxide 27 Anion Gap 13.8 BUN 8 Creatinine 0.6 GFR Calculation 122.8 Glucose 80 Calculated Osmolal ity 289 Lactate 0.8 Calcium 8.8 Total Bilirubin 0.6 AST 47 H ALT 70 H Alkaline Phosphata se 120 H Total Protein 6.5 L Albumin 4.0 Globulin 2.5 Vitals: Last Vital Signs Temp 97.4 F L 03/04/21 14:15 Pulse 66 03/04/21 14:15 Resp 16 03/04/21 14:15 BP 130/88 03/04/21 14:15 Pulse Ox 93 03/04/21 14:15 Discharge Plan Discharge Patient Disposition: Home Condition: Stable Prescriptions: New ibuprofen 800 mg tablet 800 mg PO Q8H PRN (Reason: pain) Qty: 30 RF: 0 Tylenol Extra Strength 500 mg tablet 500 mg PO Q4H PRN (Reason: pain) Qty: 30 RF: 0 tramadol 50 mg tablet 50 mg PO Q6H PRN (Reason: pain) Qty: 30 RF: 0 Discharge Orders: Discharge Order (Routine); Ordered 03/04/21 Ordered By: Nik Prabhakar Referrals: Oneil Bishop MD [Physician] - 2 weeks Discharge Diet: Advance as tolerated and Low Fat Discharge Activity: Limit activity as instructed Patient Instructions: Laparoscopic Cholecystectomy (DC) Activity Restrictions/Additional Instructions: 1. Up and walking as tolerated. 2. Ok to shower in 48 hours after surgery. 3. Remove Dermabond dressing in 7-10 days. 4. Do not lift more than 10 pounds. 5. Do not operate heavy machinery or drive while using pain medications. 6. Advised to return to ER or contact my office if there are any signs of infection like, increasing pain, fevers, chills, redness or drainage of pus. Discharge Attestations Time Spent in Discharge Care*: less than 30 min Quality Metrics Clinical Quality Measures During this hospital stay, did patient experience: None Coding Level of Care Code Acute Chg FW DC note Diagnoses Cholecystitis with cholelithiasis K80.12 Cholelithiasis location: gallbladder Cholecystitis acuity: acute and chronic Biliary obstruction: without biliary obstruction
[2021-03-04] MEDS: fentaNYL 50 mcg/mL INJ 2mL IVP ×2 (14:32→14:37)
[2021-03-04] MEDS: ibuprofen 800 mg tablet PO (14:59)
[2021-03-04] MEDS: acetaminophen 500 mg Tablet 1000 MG PO (15:00)
[2021-03-04] MEDS: TRAMadol 50 mg Tablet PO (15:00)
--- NOTE | 2021-03-04 21:08 | ANE.PACU2 ---
Inpatient post-anesthesia follow up: Airway intact: Yes Vital signs: Temperature 97.1 F Pulse Rate [Monito r] 78 Pulse Rate 73 Respiratory Rate 20 Blood Pressure [Ri ght Arm] 133/95 Blood Pressure 118/72 Pulse Oximetry 96 Oxygen Delivery Me thod Room Air Oxygen Flow Rate 8 Fraction of Inspir ed Oxygen Hydration adequate: Yes Nausea and vomiting: No Pain level: 2 Mental status: Baseline
== END 2021-03-04 15:29 | disposition home or self-care (01) ==
LOC: ER 03-04 10:56 → OR 03-04 11:37
PROVIDERS: Emergency Medicine; Emergency Provider Family Medicine; Visit Provider Anesthesiology Critical Care Medicine
PROC: 0FT44ZZ Resection of Gallbladder, Percutaneous Endoscopic Approach (ICD-10-PCS; CPT 47562; principal; 2021-03-04 12:00)
DX: K80.10 Calculus of gallbladder with chronic cholecystitis without obstruction (principal)
CPT/HCPCS: 47562; 74177; 74181; 74300; 76000; 76705; 80053; 81001; 83605; 83690; 84703; 85025; 86140; 87426; 88304; J0690; J0696; J1100; J1170; J1200; J2270; J2405; J2704; J2710; J3010; J3490; J7030; Q9967

== ENCOUNTER 2021-06-15 12:55 | Emergency (ER) | payer BC, MEDICAID, SELFPAY ==
[2021-06-15 13:11] VITALS: BP 121/75; PULSE 62; RESP 16; TEMP 36.7; O2SAT 99
--- NOTE | 2021-06-15 13:18 | XRR_ITS ---
PROCEDURE INFORMATION: Exam: XR Right Toe(s) Exam date and time: 06/15/2021 1:18 PM Age: 25 years old Clinical indication: Injury or trauma; Other: Crush; Work related; Blunt trauma; Toes; Right; Additional info: Trauma, pain TECHNIQUE: Imaging protocol: XR Right toes. Views: Minimum 2 views. COMPARISON: No relevant prior studies available. FINDINGS: Bones/joints: Normal. Soft tissues: Normal. XR/XR toe RT min 2V [id number] IMPRESSION: No acute findings.
[2021-06-15 14:58] VITALS: BP 114/71; PULSE 87; RESP 16; TEMP 36.9; O2SAT 95
--- NOTE | 2021-06-15 15:17 | ED_ITS ---
HPI - Extremity Injury (Lower) General: Chief Complaint: Extremity Injury, Lower Stated Complaint: Swollen Toe, Black Toenail w/ ooze Time Seen by Provider: 06/15/21 15:03 Source: patient Mode of arrival: ambulatory Limitations: no limitations History of Present Illness: HPI Narrative: Patient is a 25-year-old female who presents to ED today for evaluation of a right toe injury. Patient states a piece of machinery carrying pallets ran over her toe approximately 5 to 6 days ago. She has continued to have pain to the toe. No nail damage. She has not noticed any redness, warmth, or streaking. She has continued to ambulate on the extremity. MD complaint: foot injury Onset (ago): day(s) Injury: Right: toes Type of Injury: blunt Place: work Severity: moderate Relieving factors: immobilization Exacerbating factors: weight bearing, movement and palpation Context: direct blow Associated symptoms: Reports no associated symptoms Other symptoms: none Review of Systems Musc: Reports: extremity pain (R great toe); Denies: extremity swelling Skin/Breast: Reports: other (no lacerations/abrasions noted) PFSH ED PFSH: Social History Smoking and tobacco status: never smoked Physical Exam Const: COMMON NORMALS: no acute distress, no limitations and alert GENERAL APPEARANCE: cooperative Extremity: GENERAL: Yes normal exam except as noted OTHER: pt with tenderness to R great toe; there is no obvious swelling; no nail damage or obvious subungual hematoma; she has no redness/warmth or evidence for infection Neuro: COMMON NORMALS: moves all extremities, no focal motor deficits, no sensory deficits noted and gait normal SENSORIUM/ORIENTATION: Yes alert Skin: NARRATIVE SKIN EXAM: see extremity assessment for pertinent skin findings Course Vital Signs: Vital signs: Vital Signs Temperature 98.4 F 06/15/21 14:58 Pulse Rate 87 06/15/21 14:58 Respiratory Rate 16 06/15/21 14:58 Blood Pressure 114/71 06/15/21 14:58 Pulse Oximetry 95 06/15/21 14:58 MDM - Extremity Injury (Lower) Imaging Data^: XR R toe: My impression: NAD Radiologist's impression: [address] [address] XRay Report Signed Patient: Elisabet Lozano Unit #: [id number] : [id number] Age/Sex: 25 / F ADM Date: 06/15/21 Loc: ER Room/Bed: Attending Dr: Ordering Provider/Ordering MD: Madeline Hubbard Date of Service: 06/15/21 Procedure(s): XR toe RT min 2V [id number] Accession Number(s): [id number] Report Number: [id number] PROCEDURE INFORMATION: Exam: XR Right Toe(s) Exam date and time: 06/15/2021 1:18 PM Age: 25 years old Clinical indication: Injury or trauma; Other: Crush; Work related; Blunt trauma; Toes; Right; Additional info: Trauma, pain TECHNIQUE: Imaging protocol: XR Right toes. Views: Minimum 2 views. COMPARISON: No relevant prior studies available. FINDINGS: Bones/joints: Normal. Soft tissues: Normal. XR/XR toe RT min 2V [id number] IMPRESSION: No acute findings. Dictated By: Cuco Cortés MD Signed By: Cuco Cortés MD Signed Date/Time: 06/15/21 1607 DD/ [id number] Discharge Plan Discharge Patient Disposition: Home Clinical Impression: Contusion of toe, right Qualifiers: Encounter type: initial encounter Toe: great toe Damage to nail status: without damage Qualified Code(s): S90.111A - Contusion of right great toe without damage to nail, initial encounter Condition: Stable Prescriptions: No Action ibuprofen 800 mg tablet 800 mg PO Q8H PRN (Reason: pain) Qty: 30 RF: 0 Tylenol Extra Strength 500 mg tablet 500 mg PO Q4H PRN (Reason: pain) Qty: 30 RF: 0 tramadol 50 mg tablet 50 mg PO Q6H PRN (Reason: pain) Qty: 30 RF: 0 Discharge Orders: Discharge ED (Routine); Ordered 06/15/21 Ordered By: Madeline Hubbard Coding Level of Care Code ED Psychiatric Orderly for g Mateusz
== END 2021-06-15 15:40 | disposition home or self-care (01) ==
PROVIDERS: Emergency Provider Physician Assistant
DX: S90.111A Contusion of right great toe without damage to nail, initial encounter (principal); W31.89XA Contact with other specified machinery, initial encounter; Y99.0 Civilian activity done for income or pay
CPT/HCPCS: 73660; 99282

== ENCOUNTER → 2021-07-05 10:37 | Outpatient (BNVA) | payer OTHER, SELFPAY | PROVIDERS: Visit Provider Registered Nurse Neonatal Intensive Care | DX: M79.641 Pain in right hand (principal) | CPT/HCPCS: 73130 ==

== ENCOUNTER 2021-07-05 11:02 | Emergency (ER) | payer OTHER, SELFPAY ==
[2021-07-05 11:11] VITALS: BP 126/90; PULSE 69; RESP 18; TEMP 37.1; O2SAT 98; BMI 33.3
--- NOTE | 2021-07-05 11:12 | XR_ITS ---
WS: [id number] Right hand, 3 views, 07/05/2021, 1140 hours Clinical Data: injury Comparison: Right hand, 07/05/2021 Findings: The oblique fracture of the base of the right second finger middle phalanx again is seen. T here is a pulse oximeter overlying the tip of the right fourth finger. XR/XR hand RT min 3V* [id number] Impression: Fracture of the base of the middle phalanx of the right second finger.
[2021-07-05 11:14] VITALS: BP 126/90; PULSE 69; RESP 18; TEMP 37.1; O2SAT 98
--- NOTE | 2021-07-05 11:18 | ED_ITS ---
HPI - Wound/Laceration General: Chief Complaint: Wound/Laceration Stated Complaint: wc right index finger injury Time Seen by Provider: 07/05/21 11:04 Source: patient Mode of arrival: ambulatory Limitations: no limitations History of Present Illness: HPI narrative: 25-year-old female presents to the ER today for right index finger pain after an injury this morning at work. Mukund webb works at a [employer] and got her hand smashed between the belt and a piece of wood. Patient reports she went to an urgent care and was told her finger was broken and they sent her to the ER. Bleeding is currently controlled but there is a laceration. Patient reports pain with any movement or touching of the finger. Patient denies any prior injury. Tetanus status unknown. Onset (ago): minute(s) Extremity Location: Right: hand (Index finger) Place: work Context: accidental Review of Systems General: Reports: 10 or more systems reviewed and unremarkable except in HPI and below PFSH ED PFSH: Social History Smoking and tobacco status: never smoked Physical Exam Const: COMMON NORMALS: no acute distress, average body habitus and patient oriented x3 GENERAL APPEARANCE: cooperative and comfortable HENMT: COMMON NORMALS: normocephalic, external ears normal and Normal external nose present HEAD & SCALP: normocephalic NOSE: Normal external nose present EXTERNAL EAR: Yes external ears normal Eye: COMMON NORMALS: conjunctivae normal CONJUNCTIVA: Yes conjunctivae normal Resp: COMMON NORMALS: normal respiratory effort EFFORT & INSPECTION: Yes able to speak in complete sentences Cardio: COMMON NORMALS: regular rate and regular rhythm RATE: regular rate RHYTHM: regular rhythm Extremity: GENERAL: Yes normal exam except as noted OTHER: Patient has a 1 cm laceration to the right index finger over the MIP joint. Bleeding is controlled at this time. There is swelling to the right index finger, no bruising is noted. Patient has decreased range of motion secondary to pain. Neuro: COMMON NORMALS: patient oriented x3, moves all extremities, no sensory deficits noted and gait normal Psych: COMMON NORMALS: mental status grossly normal, Normal thought process present and cooperative THOUGHT PROCESS: Normal thought process present Skin: TRAUMA: laceration (Right index finger, 1 cm, linear) Course ED course: Patient presents to the ER from urgent care for a right index finger injury. Patient injured this at work and smashed it between a belt and a piece of wood at the [facility]. Patient has a laceration and swelling to this finger. Will x-ray and evaluate laceration. Vital Signs: Vital signs: Vital Signs Temperature 98.7 F 07/05/21 11:14 Pulse Rate 69 07/05/21 11:14 Respiratory Rate 18 07/05/21 11:14 Blood Pressure 126/90 07/05/21 11:14 Pulse Oximetry 98 07/05/21 11:14 MDM - Wound/Laceration MDM Narrative: Medical decision making narrative: 25-year-old female presents to the ER today for right finger pain. Patient was at work and smashed her finger between the belts and a piece of wood. Patient has a 1 cm laceration. Patient was seen at a walk-in clinic and told her finger was broken. Bleeding i s controlled at this time. X-ray performed in the ER indicates a fracture of the middle phalanx that is nondisplaced. Tetanus status was unknown so patient was given a tetanus shot in the ER today. Laceration is not something that needs close. Wound was cleaned and dressed. Wound care was discussed with patient. Bandage was placed so that patient could not bend her finger. I did recommend patient get a finger splint for when the wound heals. Patient also given Augmentin given this is an open fracture. Follow-up with PCP in 10 to 14 days if no improvement. Return to the ER with any new or worsening symptoms. Imaging Data^: Xray Ortho: Radiologist's impression: [address] [address] XRay Report Signed Patient: Elisabet Lozano Unit #: [id number] : [id number] Age/Sex: 25 / F ADM Date: 07/05/21 Loc: ER Room/Bed: Attending Dr: Ordering Provider/Ordering MD: Camryn Hayden Date of Service: 07/05/21 Procedure(s): XR hand RT min 3V* [id number] Accession Number(s): [id number] Report Number: [id number] WS: [id number] Right hand, 3 views, 07/05/2021, 1140 hours Clinical Data: injury Comparison: Right hand, 07/05/2021 Findings: The oblique fracture of the base of the right second finger middle phalanx again is seen. There is a pulse oximeter overlying the tip of the right fourth finger. XR/XR hand RT min 3V* [id number] Impression: Fracture of the base of the middle phalanx of the right second finger. Dictated By: Dian Jacob MD Signed By: Dian Jacob MD Signed Date/Time: 07/05/21 1145 DD/ 1143 Critical Care Time Critical Care Time: Critical Care Time: No Discharge Plan Discharge Patient Disposition: Home Clinical Impression: Laceration Fracture of finger of right hand Qualifiers: Encounter type: initial encounter Finger: index finger Fracture type: open Phalanx: middle Fracture alignment: nondisplaced Qualified Code(s): S62.650B - Nondisplaced fracture of middle phalanx of right index finger, initial encounter for open fracture Condition: Stable Prescriptions: New Augmentin 875-125 mg tablet 1 tab PO BID 10 Days Qty: 20 RF: 0 diclofenac sodium 50 mg tablet,delayed release (DR/EC) 50 mg PO BID Qty: 14 RF: 0 No Action Tylenol Ex Str Rapid Release 500 mg Tablet 1,000 mg PO Q4H PRN (Reason: Pain) RF: 0 ProAir HFA 90 mcg/actuation Hfa Aerosol Inhaler 2 puff INHALATION QID PRN (Reason: Shortness Of Breath) RF: 0 Discharge Orders: Discharge ED (Routine); Ordered 07/05/21 Ordered By: Camryn Hayden Discharge Diet: Usual diet Discharge Activity: Limit activity as instructed Patient Instructions: Opioid Safety Activity Restrictions/Additional Instructions: Take medication as prescribed. Keep wound clean. Change dressing after 48 hours and clean with warm soapy water and reapply a dressing. Ice recommended to reduce swelling. Avoid anything at work that involves lifting or using that hand. Wear a finger splint once laceration improves. Return to the ER with any new or worsening symptoms. Coding Level of Care Code ED Senior Estimator for Alvaro Fwshamar Exam Comprehensive
[2021-07-05] MEDS: ketorolac 10 mg Tablet PO (12:31)
[2021-07-05] MEDS: tetanus-dipt-pertussis 0.5 mL SDV IM (12:32)
== END 2021-07-05 12:43 | disposition home or self-care (01) ==
PROVIDERS: Emergency Provider Physician Assistant
DX: S62.650B Nondisplaced fracture of middle phalanx of right index finger, initial encounter for open fracture (principal); S61.210A Laceration without foreign body of right index finger without damage to nail, initial encounter; W27.0XXA Contact with workbench tool, initial encounter; Z23 Encounter for immunization
CPT/HCPCS: 73130; 90471; 90715; 99283

== ENCOUNTER → 2021-09-02 11:49 | Outpatient (BNVA) | payer MEDICAID, SELFPAY | PROVIDERS: PCP Pediatrics; Visit Provider Nurse Practitioner Family | DX: Z20.2 Contact with and (suspected) exposure to infections with a predominantly sexual mode of transmission (principal) | CPT/HCPCS: 87491; 87591; 87661 ==

== ENCOUNTER → 2022-04-23 11:22 | Outpatient (BNVA) | payer MEDICAID, SELFPAY | PROVIDERS: PCP Pediatrics; Visit Provider Nurse Practitioner Family | DX: J02.9 Acute pharyngitis, unspecified (principal); H66.90 Otitis media, unspecified, unspecified ear; R11.2 Nausea with vomiting, unspecified | CPT/HCPCS: 87071; 87880 ==

== ENCOUNTER → 2022-09-26 14:26 | Outpatient (BNVA) | payer MEDICAID, SELFPAY | PROVIDERS: Visit Provider Nurse Practitioner Family | DX: N39.0 Urinary tract infection, site not specified (principal); R30.0 Dysuria; B96.89 Other specified bacterial agents as the cause of diseases classified elsewhere; N76.0 Acute vaginitis; R39.9 Unspecified symptoms and signs involving the genitourinary system | CPT/HCPCS: 81000; 81025; 87086; 87491; 87591; 87661 ==

== ENCOUNTER → 2023-03-09 11:21 | Outpatient (BNVA) | payer MEDICAID, SELFPAY | PROVIDERS: Referring Provider Nurse Practitioner Family; Visit Provider Specialist | DX: M67.432 Ganglion, left wrist | CPT/HCPCS: 73110 ==